=== PATIENT | female | born 1975 | race African-American/Black ===

== ENCOUNTER 2016-05-01 09:56 | Emergency (ER) | payer OTHER ==
[~2016-05-01] VITALS: Ht 170.2 cm; Wt 63.5 kg
[2016-05-01] MEDS ORDERED: LIDOCAINE 1%-EPI 1:100,000 50 ML VIAL IJ ONE (11:00)
[2016-05-01] MEDS ORDERED: ACETAMINOPHEN 325 MG TABLET PO ONE (11:00)
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
[2016-05-01] MEDS ORDERED: ACETAMINOPHEN 325 MG TABLET ONE (11:20)
--- NOTE | 2016-05-01 12:30 | NUR ---
JOSE OWUSU AT BEDSIDE FOR LAC REPAIR.
[2016-05-01] MEDS ORDERED: TDAP [DIPH/PERTUSSIS/TET] 0.5 ML VIAL IM ONE ×2 (12:32→13:00)
--- NOTE | 2016-05-01 12:45 | NUR ---
Patient discharged to home in stable condition. Written and verbal after care instructions given. Patient verbalizes understanding of instruction.
[2016-05-01 12:46] VITALS: BP 135/84
== END 2016-05-01 12:46 | disposition home or self-care (01) ==
LOC: ER 09:58
DX: S01.81XA Laceration without foreign body of other part of head, initial encounter (principal); S70.11XA Contusion of right thigh, initial encounter; S30.0XXA Contusion of lower back and pelvis, initial encounter; S60.222A Contusion of left hand, initial encounter; S60.221A Contusion of right hand, initial encounter; Z88.2 Allergy status to sulfonamides; Z88.6 Allergy status to analgesic agent; Y04.0XXA Assault by unarmed brawl or fight, initial encounter; Y93.89 Activity, other specified; Y92.89 Other specified places as the place of occurrence of the external cause; Y99.8 Other external cause status
CPT/HCPCS: 71010-TC; 90715; A4606; A6402; J3490; Z7610